=== PATIENT | female | born 1965 | race Caucasian/White ===

== ENCOUNTER 2017-01-23 18:45 | Emergency (ER) | payer OTHER ==
[~2017-01-23] VITALS: Ht 175.3 cm; Wt 100.0 kg
[~2017-01-23 18:45] MED LIST: ACET325T51 PO; ALBU8.5H2 INHALATION; ERGO500050 PO; HYDR-3090 PO; IBUP200C PO; IBUP800T28 PO; LORA2TAB PO; NAPR500T PO
[2017-01-23 19:05] VITALS: PULSE 112; RESP 20; O2SAT 94
--- NOTE | 2017-01-23 19:57 | ED.REPORT ---
HPI-General Illness Date of Service Jan 23, 2017 ED Provider: Mihir Santa MD The patient is a 51 year old female with history of trigeminal neuralgia, asthma , hypertension, and hyperlipidemia, who presents to the emergency department complaining of shortness of breath that has worsened throughout the day. She has had a cough since Sunday. She is currently out of her rescue inhaler. She reports associated chest discomfort, runny nose, and chills. She denies recent prolonged periods or immobilization. She denies history of blood clots. Nursing Notes Stated Complaint: CANT BREATH DEEP,ASTHMA ATTACK Chief Complaint: Respiratory Complaints Nursing Notes Reviewed: Yes Allergies: Coded Allergies: TAPE (Verified Allergy, Severe, BLISTERS, 10/28/15) iodine (Verified Allergy, Severe, BLISTERS FROM TOPICAL/IV OK, 10/28/15) povidone-iodine (Verified Allergy, Severe, BLISTERS FROM TOPICAL/IV OK, ) soap (Verified Allergy, Severe, BLISTERS FROM TOPICAL/IV OK, 10/28/15) Scheduled Ergocalciferol (Vitamin D2) (Drisdol) 50,000 Unit Capsule 50,000 UNIT PO Q7D Prednisone (PredniSONE) 20 Mg Tablet 40 MG PO DAILY Scheduled PRN Acetaminophen (Acetaminophen) 325 Mg Tablet 325 MG PO Q4H PRN PRN For Fever Albuterol HFA (Proair HFA) 8.5 Gm Hfa.aer.ad 2 PUFFS INHALATION Q4H PRN PRN For Shortness of Breath Hydrocodone-Acetaminophen 5-300 mg (Hydrocodone-Acetaminophen 5-300 mg) 1 Each Tablet 1-2 TABLET PO Q4H PRN PRN For Pain Ibuprofen (Ibuprofen) 800 Mg Tablet 800 MG PO QID PRN PRN For Pain Ibuprofen (Ibuprofen) 200 Mg Capsule 200 MG PO QID PRN PRN For Pain Lorazepam (Lorazepam) 2 Mg Tablet 2 MG PO TID PRN PRN For Anxiety Naproxen (Naprosyn) 500 Mg Tablet 500 MG PO BID PRN PRN For Pain General Time Seen by MD: 19:52 Chief Complaint Other (shortness of breath) Hx Obtained From: Patient Arrived By: Walk-in Sudden in Onset?: No Onset Occurred: 13 - 16 hours ago Symptom Duration: Since onset Location: : Chest Quality: Painful Severity: Current: No pain currentlyMild Severity: Maximum: Mild Recent Healthcare: No recent doctor visit, No recent hospitalization Similar Sx Previous: Yes Past Medical History Past Medical History Hypertension Hyperlipidemia Depression Trigeminal neuralgia Asthma Past Surgical History Tonsilectomy Umbilical hernia repair Septoplasty Brain surgery Family History Noncontributory Smoking History Current Every Day Smoker Social History Alcohol Use: Denies alcohol use Drug Use: Denies drug use Other Social History: Good social support, Local resident Ambulatory Status Independent Review of Systems Full Review of Systems Constitutional: Reports: Chills Ears / Nose / Throat: Reports: Nasal congestion Respiratory: Reports: Non-productive cough, Shortness of breath Cardiovascular: Reports: Chest pain Allergy / Immune: Reports: Rhinorrhea Complete sys rev & neg: except as marked. Physical Exam Vital Signs Vital Signs Date Time Temp Pulse Resp B/P Pulse Ox O2 Delivery O2 Flow Rate FiO2 01/23/17 21:56 36.9 110 18 150/80 94 Room Air 01/23/17 21:37 37.6 109 150/80 95 Room Air 01/23/17 20:32 106 24 92 Room Air 01/23/17 19:05 36.8 112 20 94 Room Air Initial VS: Reviewed Head / Eyes: Atraumatic, Normocephalic, PERRL ENT: Mucous membranes moist, Conjunctiva normal, No scleral icterus Neck: Supple, Non-tender, Full range of motion Cardiovascular: Regular rate & rhythm, Heart sounds normal, Intact distal pulses Abdomen / GI: Soft, Non-tender, No guarding, No rebound, No distention Lymphatic: No lymphadenopathy Extremities: Vascular intact, Neuro intact, No swelling, No tenderness Skin: Warm, Dry, No cyanosis Neurologic: Alert, Oriented, Nonfocal Psychiatric: Mood/affect normal, Behavior normal, Normal thought content General/Constitutional: Awake, Alert, Cooperative Respiratory / Chest: No respiratory distress Wheezing / Retractions: Positive: Prolonged exp phase, Wheezing expiratory Coarse bilateral breath sounds. Lower Extremity / Pelvis / MS: No swelling, Non-tender, Neurologic intact, Vascular intact, No edema Interpretation & Diagnostics X-Ray Chest Interpretation Chest Xray Interpretation: IMPRESSION: Normal for age source of cough is not found. Dictated by: Dipak Juarez M.D. on 01/23/2017 at 20:25 Interpretation / Wet Read by: Interpret - Radiologist Re-Eval/Medical Decision Med Decision/Clinical Course The patient is a 51 year old female with history of trigeminal neuralgia, asthma , hypertension, and hyperlipidemia, who presents to the emergency department complaining of shortness of breath that has worsened throughout the day. She has had a cough since Sunday. She is currently out of her rescue inhaler. She reports associated chest discomfort, runny nose, and chills. She denies recent prolonged periods or immobilization. She denies history of blood clots. Upon arrival she is borderline tachycardic though otherwise afebrile and hemodynamically stable. Examination of the above revealed coarse breath sounds with scattered expiratory wheezing. She has good oxygen saturation on room air. CXR: Obtained, reviewed and interpreted by myself shows no evidence of infiltrates, effusions or pneumothorax. Cardiac and mediastinal silhouette normal. No bony or soft tissue abnormalities. She was treated with [id number] DuoNeb followed by albuterol nebulizer. She reported significant subjective improvement. She was ambulated on pulse oximetry and maintained oxygen saturation in the high 90s on room air. She was additionally treated with oral prednisone. She will be discharged with a course of oral prednisone and has been provided with an albuterol inhaler and spacer which she will use every 2-4 hours for the next 24-48 hours. She will follow closely with her primary care physician. No evidence at this time of pneumonia, pneumothorax or pulmonary embolism. Prior to discharge follow-up and return precautions were reviewed in detail with the patient who verbalized understanding and agreement with the plan. The patient was discharged in stable condition. Source of Hx: Old records Time of Eval: 20:51 Re-Evaluation/Progress Note: Discussed results, diagnosis, and plan for discharge. Will road test prior to discharge. Time of Eval: 21:03 Re-Evaluation/Progress Note: The patient passed her road test. Will discharge home. Counseled Regarding: Diagnosis, Need for follow-up, When/why to return to ED Discharge & Departure Primary Impression: Asthma exacerbation Additional Impressions: Shortness of breath Wheezing Acute respiratory infection Disposition: Home Discharge Condition All VS Reviewed: Yes Condition: Stable Patient Instructions: Asthma (ED) Additional Instructions: Thank you for seeking care at the emergency room. It is difficult for us to make definitive diagnoses in the ED but we believe that you are experiencing an asthma exacerbation Our primary goal today in the ED was to evaluate you for any life-threatening conditions. Your evaluation was reassuring. You will be discharged with a prescription for Prednisone. Make sure to take this medication as prescribed. Use the albuterol inhaler with the spacer every 2-4 hours, for at least the next 24 hours. You should follow-up with your primary doctor in the next few days for re- evaluation. You should return to the ED immediately if you develop increased work of breathing, fevers, chest pain, lightheadedness, weakness or any other concerning signs or symptoms. Thank you for letting us partake in your care today. Referrals: Elle Browning MD (PCP) Scribe Attestation Portions of this note were transcribed by Pretty Candelario. I, Dr. Santa personally performed the history, physical exam and medical decision-making; I reviewed and confirmed the accuracy of the information in the transcribed note. Signed by: Liz Harden, 01/23/2017 at 2100. copies to: Elle Browning MD, Beck O MD Jan 23, 2017 19:57 Pretty Candelario Jan 23, 2017 20:28
[2017-01-23] MEDS ORDERED: Albuterol-Ipratropium 3 mL Inhalation Solution NEB ONE (20:00)
[2017-01-23] MEDS ORDERED: predniSONE 20 mg Tablet PO ONE (20:00)
--- NOTE | 2017-01-23 20:27 | DRSVH ---
PROCEDURE: X-RAY CHEST, TWO VIEWS ([id number]) INDICATIONS: sob TECHNIQUE: 2 views of the chest were acquired. COMPARISON: None. FINDINGS: Surgical changes and devices: None. Lungs and pleura: No pleural effusions or pneumothorax. Lungs are clear. Mediastinum: Mediastinal contours are normal. Heart size is normal. Bones and chest wall: No suspicious bony abnormalities. Soft tissues appear unremarkable. IMPRESSION: Normal for age source of cough is not found. Dictated by: Dipak Juarez M.D. on 01/23/2017 at 20:25 Approved by: Dipak Juarez M.D. on 01/23/2017 at 20:26
[2017-01-23] MEDS ORDERED: Albuterol-Ipratropium 3 mL Inhalation Solution NEB SCH (20:30)
[2017-01-23 20:32] VITALS: PULSE 106; RESP 24; O2SAT 92
[2017-01-23] MEDS ORDERED: PRE20 PO (20:53)
[2017-01-23] MEDS ORDERED: Albuterol HFA 60 Puff 8 Gm Inhaler INHALATION PRN (20:55)
[2017-01-23 21:37] VITALS: BP 150/80; PULSE 109; O2SAT 95
[2017-01-23 21:56] VITALS: BP 150/80; PULSE 110; RESP 18; O2SAT 94
[2017-01-23] MEDS ORDERED: _Albuterol-HFA 60 Puff Inhaler INHALATION PRN (22:25)
== END 2017-01-23 21:56 | disposition home or self-care (01) ==
LOC: SED 18:45
DX: J45.901 Unspecified asthma with (acute) exacerbation (principal); J06.9 Acute upper respiratory infection, unspecified; I10 Essential (primary) hypertension; E78.5 Hyperlipidemia, unspecified; F17.200 Nicotine dependence, unspecified, uncomplicated; Z79.899 Other long term (current) drug therapy
CPT/HCPCS: 71020; 94664; 99284; J7620

== ENCOUNTER 2017-05-04 19:07 | Emergency (ER) | payer OTHER ==
[~2017-05-04] VITALS: Ht 175.3 cm; Wt 115.0 kg
[~2017-05-04 19:07] MED LIST changes: +PRE20 PO
[2017-05-04 19:11] VITALS: BP 178/108; PULSE 102; RESP 18; O2SAT 99
--- NOTE | 2017-05-04 21:52 | ED.REPORT ---
HPI-General Illness Date of Service May 04, 2017 ED Provider: Miguelangel Grover MD Patient is a 51 year old female who presents to the ED complaining of left sided facial numbness onset earlier this evening. Associated symptoms include cough, nausea, headache, subjective fever, tingling around her lips and dental pain that started yesterday morning. She denies shortness of breath, chest pain or vomiting. The patient reports that she was seen earlier for the same complaint and was diagnosed with a dental infection that was touching the sinus. She was started on a course of Augmentin and has taken one dose. Nursing Notes Stated Complaint: SINUS SYMPTOMS, HIGH BP Chief Complaint: General Complaint Nursing Notes Reviewed: Yes Allergies: Coded Allergies: TAPE (Verified Allergy, Severe, BLISTERS, 05/04/17) iodine (Verified Allergy, Severe, BLISTERS FROM TOPICAL/IV OK, 05/04/17) povidone-iodine (Verified Allergy, Severe, BLISTERS FROM TOPICAL/IV OK, ) soap (Verified Allergy, Severe, BLISTERS FROM TOPICAL/IV OK, 05/04/17) Scheduled Ergocalciferol (Vitamin D2) (Drisdol) 50,000 Unit Capsule 50,000 UNIT PO Q7D Prednisone (PredniSONE) 20 Mg Tablet 40 MG PO DAILY Scheduled PRN Acetaminophen (Acetaminophen) 325 Mg Tablet 325 MG PO Q4H PRN PRN For Fever Albuterol HFA (Proair HFA) 8.5 Gm Hfa.aer.ad 2 PUFFS INHALATION Q4H PRN PRN For Shortness of Breath Hydrocodone-Acetaminophen 5-300 mg (Hydrocodone-Acetaminophen 5-300 mg) 1 Each Tablet 1-2 TABLET PO Q4H PRN PRN For Pain Ibuprofen (Ibuprofen) 800 Mg Tablet 800 MG PO QID PRN PRN For Pain Ibuprofen (Ibuprofen) 200 Mg Capsule 200 MG PO QID PRN PRN For Pain Lorazepam (Lorazepam) 2 Mg Tablet 2 MG PO TID PRN PRN For Anxiety Naproxen (Naprosyn) 500 Mg Tablet 500 MG PO BID PRN PRN For Pain General Time Seen by : 21:51 Chief Complaint Other (left sided facial numbness) Hx Obtained From: Patient Arrived By: Walk-in Sudden in Onset?: Yes Onset Occurred: 5 - 8 hours ago Symptom Duration: Since onset Location: : Face: Mouth Quality: Painful Severity: Current: Moderate Recent Healthcare: Recent doctor visit Similar Sx Previous: No Past Medical History Past Medical History Hyperlipidemia Depression Trigeminal neuralgia Asthma Past Surgical History Tonsilectomy Umbilical hernia repair Septoplasty Brain surgery Family History Noncontributory Smoking History Current Every Day Smoker Social History Alcohol Use: Denies alcohol use Drug Use: Denies drug use Other Social History: Good social support, Local resident Ambulatory Status Independent Review of Systems Full Review of Systems Constitutional: Reports: Chills, Fever (subjective) Ears / Nose / Throat: Reports: Mouth pain, Sinus problem Respiratory: Reports: Non-productive cough, Denies: Shortness of breath Cardiovascular: Denies: Chest pain GI: Reports: Nausea, Denies: Vomiting Skin: Denies Itching, Denies Rash Neurologic: Reports: Headache, Numbness, Denies: Lightheaded, Problem walking, Weakness Complete sys rev & neg: except as marked. Physical Exam Vital Signs Vital Signs Date Time Temp Pulse Resp B/P Pulse Ox O2 Delivery O2 Flow Rate FiO2 05/04/17 19:11 36.5 102 18 178/108 99 Room Air Initial VS: Reviewed General/Constitutional: Awake, Alert Head / Eyes: Atraumatic, Normocephalic, PERRL, EOMI ENT: Atraumatic, Airway patent, Mucous membranes moist Dental / Gums: Positive: Ginigivitis present, Negative: Dental abscess Respiratory / Chest: Atraumatic, Breath sounds NL, Breath sounds = bilat, No respiratory distress Cardiovascular: Heart rate NL, Regular rhythm, Heart sounds NL Upper Extremities Upper Extremity / MS: Atraumatic, Full range of motion Skin: Atraumatic, Color NL, No rash, Warm, Dry Neurologic: Oriented X3, Speech NL, No motor deficits, No sensory deficits, CN II - XII intact, Cerebellar NL, Memory NL Psychiatric: Affect NL, Mood NL Re-Eval/Medical Decision Time of Eval: 22:05 Re-Evaluation/Progress Note: Discussed plan for discharge. Patient understands and agrees to plan. All questions were addressed. Counseled Regarding: Diagnosis, Need for follow-up, When/why to return to ED Discharge & Departure Primary Impression: Sinusitis Sinusitis location: unspecified location Chronicity: acute Recurrence: not specified as recurrent Qualified Code: J01.90 - Acute sinusitis, unspecified Additional Impression: Gingivitis Disposition: Home Discharge Condition All VS Reviewed: Yes Condition: Stable Patient Instructions: Sinusitis (ED) Additional Instructions: Essential sinusitis treatments: #1. Stop smoking #2 Be sure to drink plenty of fluids. #3 nasal irrigation. This treatment is more effective than antibiotics. #4 use congestions and avoid antihistamines. #5 take the antibiotic as prescribed. You can take 800mg of ibuprofen every 8 hours. Use stronger pain medication in addition to the ibuprofen if needed. Follow up with your primary care physician in 3-4 days if your symptoms persist. Return to the emergency department if you develop any new or concerning symptoms including vomiting, fever or continuously high blood pressure. No evidence of stroke today. Scribe Attestation Portions of this note were transcribed by Shayy Tolbert. I, Dr. Grover personally performed the history, physical exam and medical decision-making; I reviewed and confirmed the accuracy of the information in the transcribed note. Signed by: Liz Mace, 05/04/17 Miguelangel Grover MD May 04, 2017 21:52 Renata Tolbert May 04, 2017 22:04
== END 2017-05-04 22:30 | disposition home or self-care (01) ==
LOC: SED 19:07
DX: J01.90 Acute sinusitis, unspecified (principal); K05.10 Chronic gingivitis, plaque induced; F17.200 Nicotine dependence, unspecified, uncomplicated; E78.5 Hyperlipidemia, unspecified

== ENCOUNTER → 2017-06-15 | Day surgery (SDC) | payer OTHER ==
--- NOTE | 2017-06-13 14:21 | PCM.ANEPRE ---
Anesthesia Pre-Op Review Reason for Review: SURGEON'S REQUEST-REGINALD+ BUT NOT USING CPAP Anesthesia Recommendations: Proceed with Procedure Additional Comments 51 y/o female scheduled for left foot surgery. Comorbidities include dementia, asthma, DDD, REGINALD. Had a positive sleep study but was reportedly told that "she didn't need to use her CPAP as it made her sleeping more difficult." Low risk surgery with minimal postoperative pain requirements. Proceed with surgery as planned pending evaluation by DOS anesthesiologist. Vadim Sherman MD Jun 13, 2017 14:20
[~2017-06-15] VITALS: Ht 172.7 cm; Wt 113.9 kg
[2017-06-15] VITALS (10 sets, daily range): BP systolic 107–153; BP diastolic 65–84; PULSE 68–83; RESP 10–22; O2SAT 92–96
[~2017-06-15] MED LIST changes: +Albuterol HFA 200 Puff Inhaler (Vent Pts Only) ONE; +Albuterol HFA 60 Puff 8 Gm Inhaler INHALATION ONE; +Albuterol-Ipratropium 3 mL Inhalation Solution NEB PRN; +Bupivacaine-MPF 0.5% 30 mL Inj INFILTRATE ONE; +CeFAZolin 2 Gm/50 mL D5W Duplex Bag IV ONE; +CeFAZolin Inj 2 GM in IV Premix 1 EACH IV ONE; +Dexamethasone 4 mg/mL Inj ONE; +EPHEDrine Sulfate 50 mg/mL Inj IVPUSH PRN; -ERGO500050 PO; -HYDR-3090 PO; +HYDR-3091 PO; +HYDROmorphone 1 mg/mL Inj IVPUSH PRN; -IBUP200C PO; +KETO10TA PO; +LIDOCAINE 2% ONE; -LORA2TAB PO; +Lactated Ringer's 1,000 ML IV ONE; +Lactated Ringer's 1,000 ML IV SCH; +MetoCLOpramide 5 mg/mL 2 mL Inj IVPUSH PRN; -NAPR500T PO; +Ondansetron 2 mg/mL 2 mL Inj IVPUSH PRN; +Ondansetron 2 mg/mL 2 mL Inj ONE; -PRE20 PO; +Phenylephrine 10,000 mCg/mL Inj IVPUSH PRN; +Phenylephrine 10,000 mCg/mL Inj ONE; +Propofol 10 mg/mL 20 mL Inj ONE; +VIT1CAPS40 PO; +VIT1TABL55 PO; +fentaNYL-PF 50 mCg/mL 2 mL Inj IVPUSH PRN; +fentaNYL-PF 50 mCg/mL 2 mL Inj ONE; +oxyCODONE-Acetamin 5-325 mg Tablet PO PRN
--- NOTE | 2017-06-15 13:12 | PCM.HPANE ---
Patient Data Surgeon Admitting Provider: Attending Provider:Daniel Gautam DPM Primary Care Physician:Elle Browning MD Other Provider:[facility] Reason for Visit Left Foot Hallux Valgus, Soft Tissue Mass, Lipoma Ht/WT & BMI Height (Feet): 5 Height (Inches): 8 Weight (Kilograms): 113.9 Body Mass Index 38.00 Allergies Coded Allergies: TAPE (Verified Adverse Reaction, Severe, BLISTERS and tears skin, 06/13/17) iodine (Verified Adverse Reaction, Severe, BLISTERS FROM TOPICAL / IV OK, 06/13/17) povidone-iodine (Verified Adverse Reaction, Severe, BLISTERS FROM TOPICAL/ IV OK, 06/13/17) soap (Verified Adverse Reaction, Severe, BLISTERS FROM TOPICAL, 06/13/17) Uncoded Allergies: IVORY SOAP (Allergy, Severe, skin blisters, 06/13/17) Past Anesthesia History Anesthesia History: Positive for:: Fam Anesthesia Reaction (MOTHER-LOW BP, " TOO MUCH ANESTHETIC"), Denies:: Abnormal Airway, Anesthesia Reactions, Difficult Intubation, Fam Malignant Hypertherm, Malignant Hyperthermia Diabetes History Hx Diabetes?: No MRSA MRSA: No Medications Hypertension Medication: No Home Meds Incl Beta Heidi: No Reported Medications Vit D3 & K/Berberine HCl/Hops (Ostera Tablet)1 Each Tablet1 Each PO DAILY 06/13/17 Vit B12/Iod/mg/Zn/Se/Herb#193 (Adrenoid Capsule)1 Each Capsule1 Each PO DAILY 06/13/17 Ketorolac Tromethamine 10 Mg [id number] Mg PO TID 30 Days 06/13/17 Hydrocodone-Acetaminophen 7.5-300 mg 1 Each Tablet1 Each PO Q4 PRN For Pain Ref 0 06/13/17 Acetaminophen 325 Mg Vvkjcy644 Mg PO Q4H PRN For Fever Ref 0 06/13/17 Ibuprofen 800 Mg Xjmbjy404 Mg PO TID PRN For Pain Ref 0 06/13/17 Albuterol HFA (Proair HFA)8.5 Gm Hfa.aer.ad2 Puffs INHALATION Q4H #1 INHALER 06/13/17 Discontinued Reported Medications Ketorolac Tromethamine 10 Mg Ulyxqo69 Mg PO QID PRN PRN 30 Days POSTOP 06/08/17 Hydrocodone-Acetaminophen 7.5-325 mg 1 Each Tablet1 Tablet PO Q6H PRN For Pain Ref 0 ALSO ORDERED POSTOP 06/08/17 Ergocalciferol (Vitamin D2) (Drisdol)50,000 Unit Vjmnkpc54,000 Unit PO Q7D 10/04/15 Acetaminophen 325 Mg Jmkyrp586 Mg PO Q4H PRN For Fever Ref 0 10/04/15 Albuterol HFA (Proair HFA)8.5 Gm Hfa.aer.ad2 Puffs INHALATION Q4H PRN For Shortness of Breath #1 INHALER 10/04/15 Ibuprofen 800 Mg Qvgekv573 Mg PO QID PRN For Pain Ref 0 05/27/14 Ibuprofen 200 Mg Gpcjrmq305 Mg PO QID PRN For Pain Ref 0 10/04/15 Discontinued Scripts Prednisone (PredniSONE)20 Mg Powvsg03 Mg PO DAILY 5 Days Prov:Mihir Santa MD 01/23/17 Hydrocodone-Acetaminophen 5-300 mg 1 Each Tablet1-2 Tablet PO Q4H PRN For Pain # 20 TABLET Prov:Urban Griggs MD 10/28/15 Lorazepam 2 Mg Tablet2 Mg PO TID PRN For Anxiety #14 TABLET Prov:Urban Griggs MD 10/28/15 Naproxen (Naprosyn)500 Mg Neywoe466 Mg PO BID PRN For Pain #30 TABLET Prov:Urban Griggs MD 10/28/15 History History of ENT Problems?: Yes HEENT History: Positive for:: Cataracts (pre surgical right eye) Sinus Problem (S/P SEPTOPLASTY hx of environmental allergies/sinusitis) Denies:: Abnormal Airway Difficult Intubation Dysphagia Hearing Problem TMJ Denture Type: None Teeth Condition: Within Normal Limits Tooth Decay Missing Teeth Other HEENT Pertinent History: S/P TONSILLECTOMY HX DENTAL INFECTIONS Hx of Heart Problems?: No Cardiovascular History: Denies:: Congestive Heart Failure Heart Murmur Hypertension (hyperlipidemia) Irregular Heartbeat Pacemaker Hx of Respiratory Problem?: Yes Respiratory History: Positive for:: Asthma (enviromental reactions) Pneumonia (2011) Use of Inhalers / NEBS (albuterol inhaler) Denies:: COPD Chest Surgery Tuberculosis Use of C-PAP Machine (REGINALD+/DOESN'T USE CPAP SLEEP STUDY 08/2013) Hx Neurologic Problems?: Yes Neurological History: Positive for:: CVA (hx left pontine stroke due to BP issues) Headaches (occasional maybe 2/yr) Denies:: Alzheimer's Disease Dementia (MEMORY PROBLEMS FOLLOWING 2 CRANIOTOMIES) Dizziness Multiple Sclerosis Parkinson's Disease Seizures TIA Other Neurological Pertinent: S/P CRANIOTOMY X2 FOR TRIGEMINAL NERVE DECOMPRESSION 2011,2012-DR. PETERSON/GREEK HX RLS Hx of GI Problems?: Yes Gastrointestinal History: Denies:: Cirrhosis Gastroesphageal Reflux Liver Disease Other GI Pertinent History: S/P UMBILICAL HERNIA RPR Hx of Problems?: No Genitourinary History: Denies:: Kidney Stones Urinary Tract Infection Female Hx: Denies:: Currently (hx btl) Problems with Breasts? Skin History: Positive for:: History Skin Disorders? (hx of hidranitis-left buttock. Wound closed) Denies:: Pressure Ulcers Hx Musculoskeletal Problems?: Yes Musculoskeletal History: Positive for:: Musculoskeletal Trauma (S/P LT KNEE MENISECTOMY) Osteoarthritis (KNEES) Denies:: Back Injury (cervical neck "tires") Joint Replacement Systemic Lupus Hx of Psycho/Social Problems?: Yes Psycho Social History: Positive for:: Hx Depression Denies:: Anxiety Bipolar Disorder Hx Surgeries?: Yes (TONSILS,BTL,UMBILICAL HERNIA RPR,SEPTOPLASTY, CRANIOTOMIES x 2,LT KNEE) Hx Any Other Health Problems?: Yes Other History: Denies:: Cancer Endocrine Disease Hospitalization Thyroid Disease History Blood Transfusions: Positive for:: Accept Blood Products? Denies:: Blood Transfusions Hx Diabetes: No Hx Alcohol Use: NoHx Substance Use: No Smoking Status: Current Every Day Smoker Have You Smoked inLast 12 mo: YesApprox How Many Cigarettes/day: 10 Stop/Bang Treated for Sleep Apnea?: Yes Do You Have a CPAP Machine?: No S-Snoring: Do You Snore Loudly: Yes T-Tired: feel tired, fatigued: No O-Obsered: Observed not breath: No P-Blood Pressure: treated: No B- Body Mass Index > 35 kg/m2: Yes A- Age over 50: Yes N- Neck Large Circumference: No G- Gender Male: No REGINALD Total Score: 3 REGINALD Risk Assessment: High Risk, =/>3 Yes REGINALD Category 4 OutPt Procedure: Yes Risk Assessment Category Category 1A: Patient has history of documented sleep apnea, and HAS NOT received any narcotic, sedative or anesthesia administration during this stay. Category 1B: Patient has history of documented sleep apnea, and HAS received any narcotic , sedative or anesthesia administration during this stay Category 2: Patient has SUSPECTED Obstructive Sleep Apnea, and HAS received any narcotic , sedative or anesthesia administration during this stay. Category 3: Patient has SUSPECTED Obstructive Sleep Apnea and HAS NOT received narcotic, sedative or anesthesia administration during this stay. Category 4: Outpatient in Procedural Areas with known sleep apnea or who screen positive for High Risk via the STOP/BANG questionnaire. Exam Exam Vital Signs Vital Signs Date Time Temp Pulse Resp B/P Pulse Ox O2 Delivery O2 Flow Rate FiO2 06/15/17 11:40 35.7 71 18 153/84 93 Room Air General Appearance: Alert, Oriented X3, Cooperative, No Acute Distress HEENT/AIRWAY: MP 1 Lungs: Clear to Auscultation, Normal Air Movement Heart: Exam Unremarkable, Regular Rate/Rhythm, Normal S1, Normal S2, No Murmurs /Rubs/Gallops Meds/Labs/Diagnostics Admission Meds Current Medications Lactated Ringer's (Lr) 1,000 ml @ 120 mls/hr Q8H20M ONCE IV Last administered on 06/15/17t 11:23; Start 06/15/17 at 08:17; Stop 06/15/17 at 16:36 Plan Impression Patient chart reviewed, patient interviewed and anesthestic plan with risks, benefits, and alternatives discussed, and informed consent obtained. NPO per Anesth. Guidelines: Yes ASA Physical Status: ASA3 Severe Disease Anesthetic Plan: GA Bene/Risks/Altern/Consents: Yes HP Complete Prior to Induction: Yes Vadim Baez MD Jun 15, 2017 13:12
--- NOTE | 2017-06-15 14:43 | PCM.PODPO ---
Podiatry Operative Report Date of Service: Jun 15, 2017 Date of Service Jun 15, 2017 Pre Operative Diagnosis #1 hallux abductovalgus deformity left foot #2 lipoma lateral aspect left foot Post Operative Diagnosis Same Procedure #1 by correctional Andre bunion correction with screw fixation left foot #2 excision of lipoma dorsolateral midfoot left Surgeon Surgeon: Daniel Gautam DPM Assistants: None Indication for Procedure Same Findings Same Details of Procedure Patient was brought to the operating suite and placed on the table in the supine position and surgical timeout observed. Upon initiation of endotracheal general anesthesia by the anesthesiologist the left foot was anesthetized utilizing 10 cc 1% lidocaine plain and 0.5% Marcaine plain and one-to-one mix. A well-padded pneumatic ankle tourniquet was applied and the foot prepped and draped in the usual aseptic manner. Exsanguination was achieved utilizing an Esmarch bandage, the cuff was inflated to 225 mmHg. Attention was directed to the dorsal lateral left proximal midfoot. An approximately 4 cm longitudinal incision was made overlying the palpable soft tissue mass and deepened via sharp and blunt dissection. Small superficial bleeders were cauterized, and there was noted to be a well circumscribed adiposity which was adherent to the underlying extensor digitorum brevis aponeurosis. The mass was excised from dorsal to plantar and from distal to proximal. At the proximal aspect of the lesion there did appear to be a neuromatous-appearing lesion. The lesion was excised in toto. Revealed no further abnormal-appearing tissues. The lesion measured approximately 4 x 3 x 1 cm. The site was copiously irrigated, there was an absence of deep tissue to close therefore sub-cutaneous tissues were reapproximated over the void with 4-0 Vicryl and skin utilizing a running horizontal mattress of 4-0 Prolene so as to bassem the wound margins utilized to close the skin. Attention was then directed to the first metatarsal phalangeal joint. An approximately 5 cm curvilinear incision was made on the medial aspect of the first metatarsophalangeal joint and deepened via sharp and blunt dissection. A curvilinear periosteal and capsular incision was made exposing the hypertrophic medial eminence of the first metatarsal head which was conservatively resected. Next a medial to lateral Chevron shaped osteotomy was performed with the dorsal arm longer than plantar and the capital fragment displaced laterally approximately 4-5 mm. The medial aspect of the osteotomy was addressed via reciprocal planing so as to effect a correction in the proximal articular set angle. Fixation was achieved utilizing 22.0 cortical screws from dorsal to plantar utilizing lag technique with good distal screw purchase and compression of the osteotomy noted. The medial aspect of the joint and cut surface of the first metatarsal were remodeled so as to prevent any bony prominences or projections. A transarticular lateral capsulotomy was performed. Site was copiously irrigated with antibiotic solution medial capsulorrhaphy was performed and closed with 3-0 Vicryl. The forefoot was loaded the hallux was noted to be functioning in rectus alignment with full sagittal plane range of motion. The tourniquet was released and normal perfusion returned to all digits promptly. Subcutaneous tissues were reapproximated and closed with 4-0 Vicryl and skin with 4-0 Prolene. An antibiotic ointment Adaptic dressing was applied to both sites followed by a mildly compressive gauze bandage and Jaxon wrap. Postoperative fluoroscopic exam showed congruent first metatarsophalangeal joint and appropriately placed fixation screws and well coapted osteotomy. Postoperative boot was applied. The patient was extubated uneventfully and left the operating suite in apparently satisfactory condition there were no complications. The lipomatous mass was sent to pathology for gross and microscopic exam. Grafts, Implants: Implants-See Implant Record Complications There were no periprocedural complications identified. Condition Stable Anesthetic Administered: GA Drains: None Catheters: None Output, Estimated Blood Loss: 5 Blood Admin during surgery: No Surgical Cast or Splint: Post-op Boot Surgical Specimen Removed: Yes Specimen sent to Pathology: Yes Post Operative Plan Postoperative instructions have been reviewed and written copy dispensed. Patient may bear weight on the left heel in the postoperative boot and will return to the outpatient clinic in 5 days for wound check. Daniel Gautam DPM Jun 15, 2017 14:43
[2017-06-15] MEDS: Lactated Ringer's 500 ML IV PRN ×2 (15:19→16:18)
--- NOTE | 2017-06-15 17:30 | PCM.ANEP1 ---
Post Anesthesia PACU Phase 1 Assessment Date of Service: Jun 15, 2017 Vital Signs Vital Signs Date Time Temp Pulse Resp B/P Pulse Ox O2 Delivery O2 Flow Rate FiO2 06/15/17 16:10 36.5 72 16 122/68 93 Room Air 06/15/17 15:24 71 16 120/70 94 Nasal Cannula 2 06/15/17 15:07 69 16 115/65 92 Nasal Cannula 4 06/15/17 15:01 76 18 130/74 93 Nasal Cannula 4 06/15/17 14:50 75 15 124/82 96 Nasal Cannula 4 06/15/17 14:45 75 13 119/68 95 Nasal Cannula 4 06/15/17 14:40 68 10 107/79 96 Nasal Cannula 4 06/15/17 14:35 79 17 135/69 95 Nasal Cannula 4 06/15/17 14:31 36.9 83 22 126/76 95 Nasal Cannula 4 06/15/17 11:40 35.7 71 18 153/84 93 Room Air Anesthetic Administered: GA Level of Alertness: Awake, talking WEAVER's with Equal Strength: Yes Pain: Yes Pain Scale Score: 3 Nausea or Vomiting: No CV Function & Hydration Stable: Yes Airway Device: Oxygen Delivery: Nasal Cannula Lungs: Clear to Auscultation, Normal Air Movement PACU Phase 2 Assessment Complications: No Follow up Care: No Patient Instructions Provided: N/A Vadim Baez MD Jun 15, 2017 17:30
--- NOTE | 2017-06-19 16:47 | PATH ---
SURGICAL PATHOLOGY Attending Physician:Daniel Gautam DPM CASE STATUS: Signed Out PATIENT NAME: RAVINDER MOJICA PID: [id number] : 1965 DATE COLLECTED:06/15/2017 00:00 SPECIMEN: Soft Tissue, Lipoma CLINICAL HISTORY: LEFT FOOT LIPOMA, LEFT FOOT HALLUX VALGUS, LEFT FOOT TISSUE MASS 1). LEFT FOOT LIPOMA FINAL DIAGNOSIS: Designated as " Left Foot Lipoma", Excision: - Mature adipose tissue consistent with lipoma. - Scattered nerve bundles and blood vessels are identified. - No evidence of malignancy. ICD10: D17.9 GROSS DESCRIPTION: The specimen is received in formalin, labeled with the patient's name, sublabeled as L lipoma, and consists of a piece of pale yellow rubbery glistening semi-translucent adipose tissue (4.0 x 2.6 x 0.7 cm). The cut surface is homogenous and unremarkable. Section code: (A) adipose tissue, serially sectioned, financial foundations representative. 06/17/17 ICD-9 CODES: CPT CODES: 1: 35857 Electronically Signed Out Carson David MD [facility] Pathology [facility] [address], [place] [address] Technical component performed at [facility], [address] [place] [address] Ave[address], [place], [address]
== END | disposition home or self-care (01) ==
LOC: SAS 11:21
PROVIDERS: ATTEND Podiatrist
DX: M20.12 Hallux valgus (acquired), left foot (principal); D17.24 Benign lipomatous neoplasm of skin and subcutaneous tissue of left leg; J45.909 Unspecified asthma, uncomplicated; R51 Headache; M17.11 Unilateral primary osteoarthritis, right knee; M17.12 Unilateral primary osteoarthritis, left knee; F32.9 Major depressive disorder, single episode, unspecified; Z86.73 Personal history of transient ischemic attack (TIA), and cerebral infarction without residual deficits; Z79.899 Other long term (current) drug therapy
CPT/HCPCS: 28041; 28296; 76942; C1713; J0690; J1100; J1170; J1885; J2370; J2405; J2704; J3010; J7120